=== PATIENT | female | born 1970 | race Caucasian/White ===

== ENCOUNTER 2019-04-21 12:22 | Day surgery (SDC) | payer BC ==
[2019-04-21] MEDS ORDERED: NA CHLORIDE 0.9% 1,000 ML ONE ×2 (12:32→13:24)
[2019-04-21 12:46] LABS: Specific Gravity > 1.030 (1.005-1.030)
[2019-04-21] MEDS ORDERED: LIDOCAINE 1% W/EPI 1:100,000 MDV 20 ML VIAL ONE (13:24)
[2019-04-21] MEDS ORDERED: PROPOFOL 200 MG/20 ML VIAL IV ONE (13:37)
[2019-04-21] MEDS ORDERED: LIDOCAINE 1% MPF 5 ML VIAL ONE (13:37)
[2019-04-21] MEDS ORDERED: FENTANYL CITR 100 MCG/2 ML ONE (13:37)
[2019-04-21] MEDS ORDERED: MIDAZOLAM HCL 2 MG/2 ML INJ ONE (13:37)
[2019-04-21] MEDS ORDERED: NS 0.9% VIAL 10 ML ONE (14:14)
[2019-04-21] MEDS ORDERED: Phenylephrine HCl 10 MG/ML 1 ML VIAL ONE (14:14)
[2019-04-21] MEDS ORDERED: ONDANSETRON 4 MG/2 ML VIAL ONE (14:25)
--- NOTE | 2019-04-22 01:45 | OP ---
Date of Procedure: 04/21/2019 Surgeon: Rubina Moore MD Preoperative Diagnoses: Endometrial polyp, abnormal uterine bleeding with ovulatory dysfunction eith er polycystic ovary syndrome or premenopause. Postoperative Diagnoses: Endometrial polyp, abnormal uterine bleeding with ovulatory dysfunction eit her polycystic ovary syndrome or premenopause. Procedure Performed: Hysteroscopy, endometrial polypectomy, and D and C with Symphion. Anesthesia: General with LMA. Specimens: Polyp and curettings. Complications: None. Drains: None. Condition: Stable. Findings: Endometrial polyp in the left and in the right cornual end, posterior wall completely komal gilberto. Endometrium appeared to be thickened, no irregularities, smooth. An adequate sampling was perf ormed with Symphion as well. Indication: Patient is a 48-year-old with secondary amenorrhea, later on heavy bleeding for which e had seen me. FSH is only 30. Endometrial lining was 7 mm on transvaginal ultrasound; however, giv en her age and the pattern of bleeding, proceeded to treat her with Provera and performed office hyst eroscopy where endometrial polyp was found. So, endometrial polypectomy had to be done for sampling and removal of the polyp. So, she was consented and brought to the OR. Description Of Procedure: After informed consent was verified, patient was taken back to OR, placed in supine fashion on the table. After general anesthesia was given, she was placed in a dorsal litho lester position using Jose stirrups. Pelvic exam performed, 6-weeks size. Speculum placed to expose the cervix. Prep x3 with Betadine was done. Anterior lip held with 2 Allis clamps. Cervix dilated to 14 Gambian. Then, the Symphion device was primed, and with the dissector in place, the mean arteri al pressure was 70 and trending up, so set pressure on the pump was 80 mmHg. Normal saline was used, 30-degree lens. The direct hysteroscopy was performed through the cervical canal into the uterine c avity. Polyp was visualized in the cornual end on the right side posteriorly. This was with the res aye resected completely to the base and then the endometrium was sampled adequately with this [facility] e as well. All the samples were retrieved for permanent pathology. All the instruments were removed . Instrument and sponge counts were correct at the end of the case. EBL was minimal. She tolerated the procedure well. She will follow up with me in 1 week for pathology results. EDMUND Voice ID: [id number] Report ID: [id number]
== END 2019-04-21 15:50 | disposition home or self-care (01) ==
LOC: OR 12:22
PROVIDERS: ATTEND Obstetrics & Gynecology
PROC: 0UDB8ZX Extraction of Endometrium, Via Natural or Artificial Opening Endoscopic, Diagnostic (ICD-10-PCS; 2019-04-21)
PROC: 0UB98ZX Excision of Uterus, Via Natural or Artificial Opening Endoscopic, Diagnostic (ICD-10-PCS; principal; 2019-04-21 14:30)
DX: N93.9 Abnormal uterine and vaginal bleeding, unspecified (principal); N84.0 Polyp of corpus uteri; E28.9 Ovarian dysfunction, unspecified; E11.9 Type 2 diabetes mellitus without complications; I10 Essential (primary) hypertension; E03.9 Hypothyroidism, unspecified; G47.33 Obstructive sleep apnea (adult) (pediatric); K21.9 Gastro-esophageal reflux disease without esophagitis; E78.5 Hyperlipidemia, unspecified
CPT/HCPCS: 81025; 82962 ×2; 88305; 58558; J2704; J2370; J2250; J3010; J7030 ×2; J2405

== ENCOUNTER → 2023-09-13 | Emergency (ER) | payer BC ==
[~2023-09-13] MED LIST: LIDOCAINE 1% 20 ML MDV ONE; TDAP (DIPHTH,PERTUSS(ACELL),TET VAC) 0.5 ML VIAL IMVAC ONE
--- OUTSIDE RECORDS SUMMARY | 2023-09-13 14:04 | XMS REPORT | Continuity of Care Document ---
Author Name Unknown Address [address] [place] [address] thconnect Address [address] [place] [address] Care Team Providers Care Dental Scheduler Name Role Phone [email or web address] Attending Clinician Unavaila ble [email or web address] Admitting Clinician Unavaila ble Encounters Start Date/Time End Date/Time Encounter Type Admission Type Attending Clinicians Care Facility Care Department Encounter ID Source 2023-06-12 00:00:00 2023-06-12 00:00:00 Outpatient [email or web address] [email or web address] [facility] [id number] [facility]
--- NOTE | 2023-09-13 15:02 | RAD REPORT ---
EXAM DESCRIPTION: RAD - Hand Left 3 View - 09/13/2023 2:51 pm CLINICAL HISTORY: laceration, fb eval COMPARISON: Hand Left 3 View dated 05/02/2017 FINDINGS/IMPRESSION: No acute fracture. No malalignment. No significant focal degenerative changes. No radiopaque foreign body.
--- NOTE | 2023-09-13 15:59 | EDPHYS ---
Physician Documentation [facility] Name: Kayli Willis Age: 52 yrs Sex: Female : 1970 Arrival Date: 09/13/2023 Time: 13:54 Bed 12 Private MD: [place] Lant[place] C ED Physician Vinnie Pike HPI: 09/13 14:15 This 52 yrs old Female presents to ER via Ambulatory with complaints of Laceration To sb4 Hand. 14:15 The patient has a laceration occurred outdoors, and there are no complicating factors. sb4 The injury was accidental. The laceration(s) is(are) located on the Left first web space. Onset: The symptoms/episode began/occurred just prior to arrival. Associated signs and symptoms: The patient has no apparent associated signs or symptoms. The patient has not experienced similar symptoms in the past. The patient has not recently seen a physician. Historical: - Allergies: 14:14 No Known Allergies; aa5 - PMHx: 14:14 Diabetes - NIDDM; Hyperlipidemia; Hypertension; aa5 - Immunization history:: Last tetanus immunization: < 10 years ago. - Social history:: Smoking status: Patient denies any tobacco usage or history of. ROS: 14:15 Constitutional: Negative for fever, chills, and weight loss, sb4 14:15 Skin: Positive for laceration(s), 14:15 All other systems are negative, Exam: 14:15 Constitutional: This is a well developed, well nourished patient who is awake, alert, sb4 and in no acute distress. Head/Face: Normocephalic, atraumatic. Eyes: Extra-ocular motions intact. Periorbital areas with no swelling, redness, or edema. ENT: Mucous membranes moist. MS/ Extremity: Pulses equal, no cyanosis. Neurovascular intact. Full, normal range of motion. Neuro: Awake and alert, GCS 15, oriented to person, place, time, and situation. Motor strength 5/5 in all extremities. Sensory grossly intact. 14:15 Skin: injury, laceration(s), the wound is approximately 4 cm(s), with a depth of 1 cm(s), of the Left first web space, that can be described as no foreign body, linear, with mild bleeding, Vital Signs: 14:04 BP 158 / 94; Pulse 98; Resp 18 S; Temp 97.8(O); Pulse Ox 97% on R/A; Weight 68.49 kg aa5 (R); Height 5 ft. 5 in. (R); 16:11 Pulse 77; Resp 18; Pulse Ox 100% ; as6 14:04 Body Mass Index 25.13 (68.49 kg, 165.1 cm) aa5 Laceration: 16:00 Wound Repair of 5cm ( 2.0in ) subcutaneous laceration to Left first web space. Linear sb4 shaped.. Distal neuro/vascular/tendon intact. Anesthesia: Local anesthetic administered with 6 mls of 1% lidocaine. Wound prep: Extensive cleansing with betadine by nurse, Wound irrigation with saline by nurse, Wound explored, Copious irrigation. Skin closed with 7 4-0 Prolene using simple sutures and sterile technique. Dressed with non-adherent dressing. Patient tolerated well. MDM: 14:04 Patient medically screened. sb4 14:15 Differential diagnosis: superficial laceration, tendon injury, vascular injury. sb4 16:00 Data reviewed: vital signs, nurses notes, radiologic studies, and as a result, I will sb4 discharge patient. Historians other than the Patient: Spouse/Significant Other: . Care significantly affected by the following chronic conditions: Diabetes, Hypertension. Counseling: I had a detailed discussion with the patient and/or guardian regarding the historical points, exam findings, and any diagnostic results supporting the discharge/admit diagnosis, the presence of at least one elevated blood pressure reading (>120/80) during this emergency department visit, the need for outpatient follow up, for suture removal, to return to the emergency department if symptoms worsen or persist or if there are any questions or concerns that arise at home. 09/13 14:15 Order name: Hand Left 3 View XRAY; Complete Time: 15:03 sb4 09/13 15:59 Order name: Dressing - Wound; Complete Time: 16:12 sb4 Administered Medications: 14:27 Drug: Boostrix Tdap IM 0.5 ml IM once; as a single dose Route: IM; Site: right deltoid; aa5 16:06 Follow up: Response: No adverse reaction as6 15:45 Drug: Lidocaine Infiltration (1 %) 20 ml 20 ml Infiltration once; to bedside {Note: as6 administered by provider .} Volume: 20 ml; Route: Infiltration; 16:06 Follow up: Response: No adverse reaction as6 Disposition: 17:48 Co-signature as Attending Physician, Vinnie Pike MD. rt Disposition Summary: 09/13/23 15:59 Discharge Ordered Notes: Location: Home sb4 Problem: new sb4 Symptoms: have improved sb4 Condition: Stable sb4 Diagnosis - Laceration without foreign body of left hand, initial encounter sb4 Followup: sb4 - With: Private Physician - When: 10 - 14 days - Reason: Staple/Suture removal Discharge Instructions: - Discharge Summary Sheet sb4 - Laceration Care, Adult sb4 Forms: - Medication Reconciliation Form sb4 - Thank You Letter sb4 - Antibiotic Education sb4 - Prescription Opioid Use sb4 - Patient Portal Instructions sb4 - Leadership Thank You Letter sb4 Signatures: Dispatcher [employer] Yaquelin [place], RN RN aa5 Bandar Charlton RN RN as6 Megan Nicole, PA-C PAJosuéC sb4 Vinnie Pike MD MD rt
--- NOTE | 2023-09-13 15:59 | ER ---
Nurse's Notes [facility] Name: Kayli Willis Age: 52 yrs Sex: Female : 1970 Arrival Date: 09/13/2023 Time: 13:54 Bed 12 Private MD: [place] C Diagnosis: Laceration without foreign body of left hand, initial encounter Presentation: 09/13 14:04 Chief complaint: Patient states: "I was about to walk the dogs and they ran outside and aa5 I tried to catch myself from falling but ended up cutting my hand on some metal". Laceration noted to left thumb web space, mild bleeding noted at this time. 14:04 Coronavirus screen: At this time, the client does not indicate any symptoms associated aa5 with coronavirus-19. Ebola Screen: Patient denies travel to an Ebola-affected area in the 21 days before illness onset. Complicating Factors: There are no complicating factors for this patient. Initial Sepsis Screen: Does the patient meet any 2 criteria? No. Patient's initial sepsis screen is negative. Does the patient have a suspected source of infection? No. Patient's initial sepsis screen is negative. Risk Assessment: Do you want to hurt yourself or someone else? Patient reports no desire to harm self or others. Onset of symptoms was August 2023. 14:04 Acuity: SAMM 4 aa5 14:04 Method Of Arrival: Ambulatory aa5 Historical: - Allergies: 14:14 No Known Allergies; aa5 - PMHx: 14:14 Diabetes - NIDDM; Hyperlipidemia; Hypertension; aa5 - Immunization history:: Last tetanus immunization: < 10 years ago. - Social history:: Smoking status: Patient denies any tobacco usage or history of. Screenin:17 [facility] ED Fall Risk Assessment (Adult) History of falling in the last 3 months, aa5 including since admission Yes- single mechanical fall (1 pt) Confusion or Disorientation No (0 pts) Intoxicated or Sedated No (0 pts) Impaired Gait No (0 pts) Mobility Assist Device Used No (0 pt) Altered Elimination No (0 pt) Score/Fall Risk Level 0 - 2 = Low Risk Oriented to surroundings, Maintained a safe environment, Educated pt \\T\\ family on fall prevention, incl call for assistance when getting out of bed. Abuse screen: Denies threats or abuse. Nutritional screening: No deficits noted. Tuberculosis screening: No symptoms or risk factors identified. Assessment: 14:05 General: Appears uncomfortable, Behavior is cooperative. Pain: Complains of pain in aa5 Left first web space. Neuro: Level of Consciousness is awake, alert, obeys commands, Oriented to person, place, time, situation. Cardiovascular: Patient's skin is warm and dry. Respiratory: Airway is patent Respiratory effort is even, unlabored, Respiratory pattern is regular, symmetrical. GI: No signs and/or symptoms were reported involving the gastrointestinal system. : No signs and/or symptoms were reported regarding the genitourinary system. EENT: No signs and/or symptoms were reported regarding the EENT system. Derm: Skin is pink, warm \\T\\ dry. Musculoskeletal: Range of motion: intact in all extremities. Injury Description: Laceration sustained to Left first web space is clean, measuring approximately 1in long. was sustained less than 30 minutes ago. is bleeding a small amount. 14:28 Reassessment: Cleaned laceration with iodine, saline, and Hibiclens per PA VO. Pt aa5 tolerated well, gauze in place. Awaiting x-ray. . 15:33 Reassessment: Patient is alert, oriented x 3, equal unlabored respirations, skin aa5 warm/dry/pink. Awaiting laceration repair, pt notified of wait time. . Vital Signs: 14:04 BP 158 / 94; Pulse 98; Resp 18 S; Temp 97.8(O); Pulse Ox 97% on R/A; Weight 68.49 kg aa5 (R); Height 5 ft. 5 in. (R); 16:11 Pulse 77; Resp 18; Pulse Ox 100% ; as6 14:04 Body Mass Index 25.13 (68.49 kg, 165.1 cm) aa5 ED Course: 13:55 Patient arrived in ED. rg4 13:55 Lake Lantigua MD is Private Physician. rg4 14:02 Megan Nicole PA-C [facility]. sb4 14:02 Vinnie Pike MD is Attending Physician. sb4 14:04 Arm band placed on. aa5 14:04 Patient has correct armband on for positive identification. Bed in low position. Call aa5 light in reach. Side rails up X 1. Adult w/ patient. 14:11 Yaquelin Gray, RN is Primary Nurse. aa5 14:13 Triage completed. aa5 14:53 Hand Left 3 View XRAY In Process Unspecified. EDMS 15:59 Lake Lantigua MD is Referral Physician. sb4 16:06 Provided Education on: wound care. as6 16:06 Patient did not have IV access during this emergency room visit. as6 16:11 Assist provider with laceration repair on Left first web space that was between 2.6 to as6 7.5 cm using sutures. Set up tray. Performed by Megan Nicole PA-C Dressed with 4X4s, Kerlix, Patient tolerated well. Administered Medications: 14:27 Drug: Boostrix Tdap IM 0.5 ml IM once; as a single dose Route: IM; Site: right deltoid; aa5 16:06 Follow up: Response: No adverse reaction as6 15:45 Drug: Lidocaine Infiltration (1 %) 20 ml 20 ml Infiltration once; to bedside {Note: as6 administered by provider .} Volume: 20 ml; Route: Infiltration; 16:06 Follow up: Response: No adverse reaction as6 Medication: 14:27 Vaccine Information Statement (VIS) provided today. Questions and/or concerns aa5 addressed. VIS edition date: March 22, 2021. Outcome: 15:59 Discharge ordered by . sb4 16:06 Discharged to home ambulatory, as6 16:06 Condition: stable 16:11 Discharge instructions given to patient, Instructed on discharge instructions, follow as6 up and referral plans. wound care, Demonstrated understanding of instructions, follow-up care, wound care, 16:12 Patient left the ED. as6 Signatures: Dispatcher [employer] EDFL Yaquelin Gray, RN RN Tressa Nesbitt Ashby, RN RN Megan Zamudio PA-C PA-C sb4
[2023-09-13 18:35] VITALS: BP 158/94; TEMP 97.8; O2SAT 100
== END ==
LOC: ER 13:54
PROC: 0HQGXZZ Repair Left Hand Skin, External Approach (ICD-10-PCS; principal; 2023-09-13)
DX: S61.412A Laceration without foreign body of left hand, initial encounter (principal)
CPT/HCPCS: 73130; 12002; J2001